=== PATIENT | male | born 1940 | race Caucasian/White ===

== ENCOUNTER 2018-06-08 12:41 | Outpatient (CLI) | payer MEDICARE, OTHER, SELFPAY ==
[2018-06-08 13:58] LABS: Anion Gap 8.8 mmol/L (3-11); BUN 31 mg/dL (7-18); CO2 34.2 mmol/L (21.0-32.0); CREATININE 1.61 mg/dL (0.70-1.30); Calcium 9.6 mg/dL (8.5-10.1); Chloride 99 mmol/L (98-107); Estimated GFR 41.71 (mL/min/1.73m2); Glucose 133 mg/dL (70-100); Potassium 3.6 mmol/L (3.5-5.1); Sodium 142 mmol/L (136-145)
== END 2018-06-08 13:01 ==
PROVIDERS: PCP Family Medicine; Visit Provider Family Medicine
DX: N18.3 Chronic kidney disease, stage 3 (moderate) (principal)
CPT/HCPCS: 36415; 80048

== ENCOUNTER 2018-12-02 15:18 | Outpatient (CLI) | payer MEDICARE, OTHER, SELFPAY ==
[2018-12-02 16:26] LABS: Anion Gap 5.7 mmol/L (3-11); BUN 26 mg/dL (7-18); CO2 34.3 mmol/L (21.0-32.0); Calcium 10.1 mg/dL (8.5-10.1); Chloride 100 mmol/L (98-107); Estimated GFR 53.25 (mL/min/1.73m2); Glucose 104 mg/dL (70-100); Potassium 4.3 mmol/L (3.5-5.1); Sodium 140 mmol/L (136-145)
== END 2018-12-02 15:38 ==
PROVIDERS: PCP Family Medicine; Visit Provider Family Medicine
DX: N18.9 Chronic kidney disease, unspecified (principal); I10 Essential (primary) hypertension
CPT/HCPCS: 36415; 80048

== ENCOUNTER 2020-01-18 15:21 | Emergency (ER) | payer MEDICARE, OTHER, SELFPAY ==
[2020-01-18 15:25] VITALS: BP 185/114; PULSE 98; RESP 20; TEMP 36.9; O2SAT 98
[2020-01-18 15:37] VITALS: RESP 18
--- NOTE | 2020-01-18 15:51 | W.ED.GENAD ---
Discharge Plan Disposition Patient Disposition: HOME Condition: Improving Discharge Details Chief Complaint: GenMedical Clinical Impression: Hypertension Primary Care Provider: Cam Gotti ED Provider: Soham Crum Home Meds and New Rx's Prescriptions: Continued lisinopril 10 mg tablet 10 mg PO DAILY Qty: 90 RF: 3 lisinopril-hydrochlorothiazide 20-25 mg tablet 1 tab PO DAILY Qty: 90 RF: 3 multivitamin 1 EACH tablet 1 ea PO DAILY RF: 0 docusate sodium [Stool Softener] 100 MG capsule 100 mg PO DAILY RF: 0 cholecalciferol (vitamin D3) [Vitamin D3] 1,000 UNIT capsule 1,000 unit PO DAILY Qty: 100 RF: 6 Tums Ultra 1,177 MG tablet,chewable 1,177 mg PO BID RF: 0 aspirin 81 MG tablet,chewable 81 mg PO DAILY Qty: 100 RF: 6 atorvastatin 10 mg tablet 10 mg PO DAILY Qty: 90 RF: 3 Discharge Instructions Instructions: Hypertension (ED) Additional Instructions: Continue normal routine and activities. Please take your blood pressure at the same time, once daily at home and keep a journal. Return if develop chest pain, headache, vomiting, change to vision, shortness of breath, or any other acute concerns. Our care management team will arrange an outpatient follow-up for you in clinic. Medical Decision Making Healthy 79-year-old male with a history of hypertension for which he takes lisinopril and hydrochlorothiazide. He had a routine dental cleaning today and was noted to have blood pressures as high as 185/114. He states had no headache, no chest pain, no shortness of breath, no weakness, no change to urine. Is been feeling well and denies any complaints. After arrival his blood pressure normalized to 154/96. He continued to be asymptomatic. Discussed with him that I do not feel further intervention is required but rather that he check daily blood pressures and I will have care management arrange an outpatient follow-up for him in clinic for recheck. He understands return precautions. HPI General Mode of arrival: ambulatory. Date/Time Provider Initiated Documentation: 01/18/20 15:33. Limitations to Documentation: no limitations. Information obtained by: patient. History of Present Illness 79 year old M presents to the emergency department with the chief complaint of Elevated blood pressure at dentist office, no other complaint., described as mild, Patient started experiencing this unknown and it has been now resolved. No relieving factors improve symptom(s), No exacerbating factors reported . Patient notes denies confusion, chest pain, cough, headaches, loss of appetite, malaise, nausea/vomiting, seizure, shortness of breath, syncope and weakness. Patient did receive the following treatments prior to arrival, none Related Data Home Medications Medication Instructions Recorded Confirmed docusate sodium [Stool Softener] 100 mg PO DAILY tab-cap 11/17/12 01/18/20 multivitamin 1 ea PO DAILY 11/17/12 01/18/20 Tums Ultra 1,177 mg PO BID tab.chew 09/29/15 01/18/20 cholecalciferol (vitamin D3) 1,000 unit PO DAILY #100 tab-cap 09/29/15 01/18/20 [Vitamin D3] aspirin 81 mg PO DAILY #100 tab-cap 06/16/17 01/18/20 lisinopril 10 mg tablet 10 mg PO DAILY #90 tab 04/16/19 01/18/20 lisinopril 20 1 tab PO DAILY #90 tab 04/16/19 01/18/20 mg-hydrochlorothiazide 25 mg tablet atorvastatin 10 mg tablet 10 mg PO DAILY #90 tab 09/27/19 01/18/20 Previous Rx's Medication Instructions Recorded aspirin 81 mg PO DAILY #100 tab-cap 06/16/17 lisinopril 10 mg tablet 10 mg PO DAILY #90 tab 04/16/19 lisinopril 20 1 tab PO DAILY #90 tab 04/16/19 mg-hydrochlorothiazide 25 mg tablet atorvastatin 10 mg tablet 10 mg PO DAILY #90 tab 09/27/19 Allergies Allergy/AdvReac Type Severity Reaction Status Date / Time No Known Allergies Allergy Verified 02/12/19 13:09 General Stated Complaint: GenMedical ISAC: 3 Review of Systems Narrative: Patient denies complaints. 8 systems reviewed and otherwise negative, see HPI. 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 No problems noted. Father , CHF at age 78. Diabetes Heart disease Sister Age: 78 Neoplasm Sister Age: 76 Essential hypertension Brother , mi at age 66. No problems noted. Other Rheumatoid arthritis Social History (Updated 04/16/19 @ 13:12 by Mallory Ayala RN) Smoking/Tobacco Use Status: Current every day Tobacco Type: pipe Alcohol Intake: current Alcohol Intake frequency: holidays/special occasions only Drug use: Never Substance use type: does not use Caregiver/Support person: No Communication Needs: None Current gender identity: male What type of physical activity do you participate in: walking Duration: 30-45 minutes/day Frequency: 3-4 times per week Seatbelt use: always Do you feel safe at home: Yes Additional Social history: lives alone Exam Narrative Exam Narrative: GEN: awake, alert, oriented 3. Pleasant, well groomed, interactive. HEAD: Normocephalic, atraumatic ENT: Mucous membranes moist, oropharynx unremarkable, External ear exam unremarkable EYES: PERRL, EOMI NECK: Full ROM, no DEYANIRA, no menigismus CHEST/RESP: Nontender, clear to auscultation bilateral, no wheeze/rhonchi/rales CARDIOVASCULAR: RRR, no murmur, rub jaspreet. 2+ Rad pulse bilateral ABDOMEN: Soft, nontender, no mass. +Bowel sounds EXT: Full ROM, no edema, no rash Neuro: Grossly normal neurologic exam, conversant, interactive. Psych: Speech fluent, thoughts congruent, affect normal Course Vital Signs Vital signs: Vital Signs Temperature 36.9 C 01/18/20 15:25 Pulse 98 H 01/18/20 15:25 Respiratory Rate 20 01/18/20 15:25 Blood Pressure 185/114 H 01/18/20 15:25 Pulse Oximetry 98 01/18/20 15:25 Temperature 36.9 C 01/18/20 15:25 Temperature Source Skin 01/18/20 15:25 Pulse 98 H 01/18/20 15:25 Respiratory Rate 18 01/18/20 15:37 Respiratory Effort 01/18/20 15:37 Respiratory Depth Normal 01/18/20 15:37 Respiratory Pattern Normal 01/18/20 15:37 Blood Pressure 185/114 H 01/18/20 15:25 Blood Pressure Position Sitting 01/18/20 15:25 Pulse Oximetry 98 01/18/20 15:25 Oxygen Delivery Method Room Air 01/18/20 15:25 Oxygen Flow Rate 0 01/18/20 15:25 Pain Level 0 01/18/20 15:25
--- NOTE | 2020-01-18 16:00 | NUR.NOTE ---
referral faxed to [facility] Dr. Gotti.Nursing Note:
[2020-01-18 16:03] VITALS: BP 154/96; PULSE 78; O2SAT 98
== END 2020-01-18 16:03 | disposition home or self-care (01) ==
LOC: ER 16:03
PROVIDERS: Emergency Provider Emergency Medicine; PCP Family Medicine
DX: I10 Essential (primary) hypertension (principal)
CPT/HCPCS: 99281; 99282

== ENCOUNTER 2020-06-20 01:51 | Outpatient (CLI) | payer MEDICARE, OTHER, SELFPAY ==
[2020-06-20 14:40] LABS: Anion Gap 7.2 mmol/L (3-11); BUN 29 mg/dL (7-18); CO2 34.8 mmol/L (21.0-32.0); CREATININE 1.51 mg/dL (0.70-1.30); Calcium 9.8 mg/dL (8.5-10.1); Chloride 101 mmol/L (98-107); Estimated GFR 44.69 (mL/min/1.73m2); Glucose 107 mg/dL (74-106); Potassium 3.6 mmol/L (3.5-5.1); Sodium 143 mmol/L (136-145)
== END 2020-06-20 02:11 ==
PROVIDERS: PCP Family Medicine; Visit Provider Family Medicine
DX: N18.30 Chronic kidney disease, stage 3 unspecified (principal)
CPT/HCPCS: 36415; 80048

== ENCOUNTER 2021-12-17 04:09 | Outpatient (CLI) | payer MEDICARE, SELFPAY ==
[2021-12-17 16:39] LABS: Anion Gap 10.8 mmol/L (3-11); BUN 30 mg/dL (7-18); CO2 31.2 mmol/L (21.0-32.0); CREATININE 1.6 mg/dL (0.70-1.30); Calcium 10.3 mg/dL (8.5-10.1); Chloride 101 mmol/L (98-107); Estimated GFR 41.59 (mL/min/1.73m2); Glucose 81 mg/dL (74-106); Potassium 3.3 mmol/L (3.5-5.1); Sodium 143 mmol/L (136-145)
== END 2021-12-17 04:10 | disposition home or self-care (01) ==
LOC: LBO 04:10
PROVIDERS: PCP Family Medicine; Visit Provider Family Medicine
DX: N18.30 Chronic kidney disease, stage 3 unspecified (principal)
CPT/HCPCS: 36415; 80048

== ENCOUNTER 2022-07-10 04:59 | Outpatient (CLI) | payer MEDICARE, SELFPAY ==
[2022-07-10 13:20] LABS: Anion Gap 6.2 mmol/L (3-11); BUN 24 mg/dL (7-18); CO2 34.8 mmol/L (21.0-32.0); CREATININE 1.6 mg/dL (0.70-1.30); Calcium 9.6 mg/dL (8.5-10.1); Chloride 100 mmol/L (98-107); Estimated GFR 42.49 (mL/min/1.73m2); Glucose 119 mg/dL (74-106); Potassium 3.2 mmol/L (3.5-5.1); Sodium 141 mmol/L (136-145)
== END 2022-07-10 05:00 | disposition home or self-care (01) ==
LOC: LBO 04:59
PROVIDERS: PCP Family Medicine; Visit Provider Family Medicine
DX: E83.52 Hypercalcemia (principal); I10 Essential (primary) hypertension; N18.30 Chronic kidney disease, stage 3 unspecified
CPT/HCPCS: 36415; 80048

== ENCOUNTER 2023-06-16 05:16 | Outpatient (CLI) | payer MEDICARE, SELFPAY ==
[2023-06-16 13:47] LABS: Anion Gap 7.7 mmol/L (3-11); BUN 30 mg/dL (7-18); CO2 33.3 mmol/L (21.0-32.0); CREATININE 1.9 mg/dL (0.70-1.30); Calcium 9.9 mg/dL (8.5-10.1); Chloride 100 mmol/L (98-107); Estimated GFR 34.57 (mL/min/1.73m2); Glucose 154 mg/dL (74-106); Potassium 3.2 mmol/L (3.5-5.1); Sodium 141 mmol/L (136-145)
== END 2023-06-16 05:17 | disposition home or self-care (01) ==
LOC: LBO 05:17
PROVIDERS: Absent Provider Family Medicine; PCP Family Medicine; Referring Provider Family Medicine; Visit Provider Family Medicine
DX: N18.30 Chronic kidney disease, stage 3 unspecified (principal)
CPT/HCPCS: 36415; 80048

== ENCOUNTER 2023-07-10 13:44 | Outpatient (REF) | payer MEDICARE, SELFPAY ==
[2023-07-10 14:34] LABS: COMMENT (LAB VIEW ONLY) 94.93 mg/dL; Microalb ug/mg Crea 34.4 ug/mg Cr
== END 2023-07-10 13:45 | disposition home or self-care (01) ==
LOC: LBN 13:44
PROVIDERS: PCP Family Medicine; Visit Provider Family Medicine
DX: N18.30 Chronic kidney disease, stage 3 unspecified (principal)
CPT/HCPCS: 82043; 82570

== ENCOUNTER 2023-09-23 04:30 | Outpatient (CLI) | payer MEDICARE, SELFPAY ==
[2023-09-23 13:44] LABS: Anion Gap 8.6 mmol/L (3-11); BUN 23 mg/dL (7-18); CO2 35.4 mmol/L (21.0-32.0); CREATININE 1.7 mg/dL (0.70-1.30); Calcium 9.8 mg/dL (8.5-10.1); Chloride 101 mmol/L (98-107); Estimated GFR 39.26 (mL/min/1.73m2); Glucose 63 mg/dL (74-106); Sodium 145 mmol/L (136-145)
[2023-09-23 13:53] LABS: Potassium 2.9 mmol/L (3.5-5.1)
== END 2023-09-23 04:31 | disposition home or self-care (01) ==
LOC: LBO 04:30
PROVIDERS: PCP Family Medicine; Visit Provider Family Medicine
DX: N18.30 Chronic kidney disease, stage 3 unspecified (principal)
CPT/HCPCS: 36415; 80048

== ENCOUNTER 2023-10-10 02:34 | Outpatient (CLI) | payer MEDICARE, SELFPAY ==
[2023-10-10 15:51] LABS: Anion Gap 11.3 mmol/L (3-11); BUN 23 mg/dL (7-18); CO2 32.7 mmol/L (21.0-32.0); CREATININE 1.5 mg/dL (0.70-1.30); Chloride 101 mmol/L (98-107); Estimated GFR 45.62 (mL/min/1.73m2); Glucose 111 mg/dL (74-106); Potassium 3.5 mmol/L (3.5-5.1); Sodium 145 mmol/L (136-145)
== END 2023-10-10 02:35 | disposition home or self-care (01) ==
LOC: LBO 02:35
PROVIDERS: PCP Family Medicine; Referring Provider Family Medicine; Visit Provider Family Medicine
DX: E87.6 Hypokalemia (principal)
CPT/HCPCS: 36415; 80048

== ENCOUNTER 2024-01-29 02:47 | Outpatient (CLI) | payer MEDICARE, SELFPAY ==
--- OUTSIDE RECORDS SUMMARY | 2024-01-29 02:49 | XMS_ITS | Encounter Summary ---
Author Organization [facility] Address [address] [place] [address] Care Team Providers Care Recycling Operations Manager Name Role Phone Srikanth Childs DDS Primary Care Provider [phone] Encounter Details Date Type Department Care Team (Late st Contact Info) Description 04/27/2020 Results Only [facility] Lab - Main [address] [id number] Srikanth Childs DDS [address] [place] [phone] Social History Tobacco Use Types Packs/Day Years Used Date Smoking Tobacco: Never Assessed Sex and Gender Information Value Date Recorded Sex Assigned at Not on file Gender Identity Not on file Sexual Orientation Not on file documented as of this encounter Plan of Treatment Not on file documented as of this encounter Procedures Procedure Name Priority Date/Time Associated Diagnosis Comments SURGICAL PATHOLOGY Routine 04/27/2020 documented in this encounter Results * SURGICAL PATHOLOGY (04/27/2020) 04/27/2020 04/28/2020 8:4 0 EDT Narrative [facility] - 05/01/2020 14:19 EDT ----- ------- Name: DEXTER MONTOYA ?: [birth year] ?Age/Sex: 79/M ?Unit#: [id number] ? Loc: LAB.OPX ? Status: REG REF ?? Reg Date: 04/27/20 ? Pt.Phone Number: ? ----- ------- Specimen: [id number] ? STATUS: SOUT ?Spec Date:04/27/20 ? Physician Copies: ?Srikanth Childs DDS ?? Tissues: A ?? Oral mucosa, biopsy (LATERAL TONGUE) ? CPT: 33805 ?? Units: ??1 ?FINAL DIAGNOSIS ? TONGUE, LATERAL, BIOPSY; ? - Acanthotic and hyperkeratotic squamous epithelium with verrucoid features, ? negative for dysplasia or invasive carcinoma (see comment) ----- ------- ?COMMENT ? The specimen appears to be tangentially oriented. ? GROSS DESCRIPTION ? Received in formalin and labeled Dexter Dwayne and lateral tongue is a single ? piece of salgado-white tissue measuring 0.3 x 0.3 x 0.2 cm. es 1 KF ?? PREOP DX/CLINICAL HISTORY ?PAPILLOMA Signed ____(signature on file)____ MitulgeovanniJasonEvan 05/01/20 ?? By the signature above, the attending physician certifies that he/she has personally conducted a gross and/or microscopic examination of the described specimens and rendered or confirmed the above diagnosis. Test Performed by [facility], [address] [place], [place] [id number] Coding Assistant: Gloria Delgado MD PHD ----- ------- Srikanth Childs DDS PATHOLOGY ORDERABLES [facility] [address] [place] [id number] documented in this encounter Visit Diagnoses Not on filedocumented in this encounter Care Teams Recycling Operations Manager Relationship Specialty Start Date End Date Srikanth Childs DDS PCP - General asbestos brake lining finisher 04/27/20 documented as of this encounter
--- OUTSIDE RECORDS SUMMARY | 2024-01-29 02:49 | XMS_ITS | Encounter Summary ---
Author Organization [facility] Address [address] [place] [address] Care Team Providers Care Electronics Repair Technician Name Role Phone Unavailable Primary Care Provider Unavailabl e Encounter Details Date Type Department Care Team ([facility] st Contact Info) Description 06/20/2004 Results Only [facility] - Maple conversion [address] [place] [address] Karlie Thurman MD [address] [place] [phone] Social History Tobacco Use Types Packs/Day Years Used Date Smoking Tobacco: Never Assessed Sex and Gender Information Value Date Recorded Sex Assigned at Not on file Gender Identity Not on file Sexual Orientation Not on file documented as of this encounter Plan of Treatment Not on file documented as of this encounter Procedures Procedure Name Priority Date/Time Associated Diagnosis Comments SURGICAL PATHOLOGY Routine 06/20/2004 0:00 EST documented in this encounter Results * SURGICAL PATHOLOGY (06/20/2004 0:00 EST) Pathology Report: SURGICAL PATHOLOGY REPORT Reports generated via electronic interface contain original data; however they are lacking the format of the original report. Caution should be taken when reading/interpreti ng unformatted reports. Name: ? DEXTER MONTOYA ? Accession #: ? [id number] ? : ? 1940 (Age: 63) ??M ? Collect Date: ? 06/20/2004 ? Location: ? [facility] ? Receive Date: ? 06/20/2004 ? Provider: KARLIE THURMAN MD Copy to: CHAN BRANNON MD ? Final Pathologic Diagnosis: ? Prostate, prostatectomy: 1. ?Benign nodular hyperplasia. 2. ?Chronic prostatitis. Document reviewed and electronically signed by: Sravan Reid MD Report ??Date: 06/22/2004 15:44 By the signature above, the attending physician certifies that he/she has personally conducted a gross and/or microscopic examination of the described specimens and rendered or confirmed the above diagnosis. Specimen(s) Received: ? Prostate Clinical History: ? Open prostatectomy; PMH urinary retention, bladder obstruction, negative bx Gross Description: ? Received in formalin labelled Dwayne and prostate is the product of a radical prostatectomy which weighs 108 grams. ??The prostate measures 7.0 cm right to left, 6.5 cm apex to base, and 4.5 cm anterior to posterior. ??The vas deferens and seminal vesicles are not received with the prostate. ??The posterior surgical margin is inked blue and the remaining surgical margins are inked black. ??Red ink is placed on the right and left bladder prostate for orientation purposes only. ??The prostate is serially sectioned from apex to base, revealing a soft, salgado-yellow surface with focal nodularity and hemorrhage. ??The prostate exudes a salgado, creamy fluid while it is sectioned. ??Sections are submitted as follows: BLOCK MAGUIRE A1-A5 ?Right and left apex, perpendicular sections A6 ?Inferior right anterolateral A7 ?Inferior right posterolateral A8 ?Inferior left, posterolateral A9 ?Inferior left anterolateral A10 ?Mid right, anterolateral A11 ?Mid right, posterolateral A12 ?Mid left, posterolateral A13 ?Mid left, anterolateral A14 ?Superior right, anterolateral A15 ?Superior right, posterolateral A16 ?Superior left, posterolateral A17 ?Superior left, anterolateral A18-A20 ? Right base, perpendicular sections A21-A23 ? Left base, perpendicular sections (Dr. Baker)/kmm ? End of Report [facility] 06/20/2004 06/20/2004 15: 27 EST Karlie Thurman MD PATHOLOGY ORDERABLES [facility] [address] [place] [address] documented in this encounter Visit Diagnoses Not on filedocumented in this encounter
--- OUTSIDE RECORDS SUMMARY | 2024-01-29 02:49 | XMS_ITS | Encounter Summary ---
Author Organization [facility] Address [address] [place] [address] Care Team Providers Care Editor Publications Name Role Phone Unavailable Primary Care Provider Unavailabl e Encounter Details Date Type Department Care Team ([facility] st Contact Info) Description 05/02/2004 Results Only [facility] - Maple conversion [address] [place] [address] Karlie Thurman MD [address] [place] [phone] Social History Tobacco Use Types Packs/Day [...] Date/Time Associated Diagnosis Comments SURGICAL PATHOLOGY Routine 05/02/2004 0:00 EDT documented in this encounter Results * SURGICAL PATHOLOGY (05/02/2004 0:00 EDT) Pathology Report: SURGICAL PATHOLOGY REPORT Reports generated via electronic interface contain original data; however they are lacking the format of the original report. Caution should be taken when reading/interpreti ng unformatted reports. Name: ? DEXTER MONTOYA ? Accession #: ? [id number] ? : ? 1940 (Age: 63) ??M ? Collect Date: ? 05/02/2004 ? Location: ? [facility] ? Receive Date: ? 05/02/2004 ? Provider: KARLIE THURMAN MD Copy to: CHAN BRANNON MD ? Final Pathologic Diagnosis: A. ?Prostate, right apex, needle core biopsy: 1. ?Prostatic tissue (1 core): ? - ??Acute and chronic inflammation. - ??Atrophy. B. ?Prostate, right mid, needle core biopsy: 1. ?Prostatic tissue (1 core): ? - ??Acute and chronic inflammation. - ??Atrophy. - ??Benign urothelium. C. ?Prostate, right base, needle core biopsy: 1. ?Prostatic tissue (1 core): ? - ??Atrophy with mild chronic inflammation. 2. ?Benign colorectal mucosa with no specific pathologic features. D. ?Prostate, left apex, needle core biopsy: 1. ?Prostatic tissue (1 core): ? - ??Atrophy with focal acute inflammation. E. ?Prostate, left mid, needle core biopsy: 1. ?Prostatic tissue (1 core): ? - ??Focal mild acute and chronic inflammation. - ??Focal giant cell reaction. - ??Atrophy. F. ?Prostate, left base, needle core biopsy: 1. ?Prostatic tissue (2 cores): ? - ??Mild acute and chronic inflammation. - ??Atrophy. Document reviewed and electronically signed by: Jaziel Read MD Report ??Date: 05/04/2004 16:58 By the signature above, the attending physician certifies that he/she has personally conducted a gross and/or microscopic examination of the described specimens and rendered or confirmed the above diagnosis. Specimen(s) Received: A. ?Rt apex B. ?Rt mid C. ?Rt base D. ?Lt apex ? E. ?Lt mid F. ?Lt base x2 Clinical History: ? TRUS prostate, PSA 4.1, hypoechoic lesion L base, R/O CAP Gross Description: ? Received in formalin labelled Dwayne and right apex is a salgado-white cylindrical 1.3 x 0.1 cm soft tissue. ??The specimen is entirely submitted as (A). ?? Received in formalin labelled Dwayne and right mid is a salgado-white cylindrical 1.6 x 0.1 cm soft tissue. ??The specimen is entirely submitted as (B). ?? Received in formalin labelled Dwayne and right base is a salgado-white cylindrical 1.7 x 0.1 cm soft tissue. ??The specimen is entirely submitted as (C). Received in formalin labelled Dwayne and left apex is a salgado-white cylindrical 1.8 x 0.1 cm soft tissue. ??The specimen is entirely submitted as (D). ?? Received in formalin labelled Dwayne and left mid is a salgado-white cylindrical 1.8 x 0.1 cm soft tissue. The specimen is entirely submitted as (E). Received in formalin labelled Dwayne and left base are two salgado-white cylindrical soft tissues averaging 1.6 cm in length and 0.1 cm in diameter. ??The specimen is entirely submitted as (F). ??(Madhu Johnson)/[facility] End of Report [facility] 05/02/2004 05/02/2004 15: 29 EDT Karlie Thurman MD PATHOLOGY ORDERABLES [facility] [address] [place] [address] documented in this encounter Visit Diagnoses Not on filedocumented in this encounter
--- OUTSIDE RECORDS SUMMARY | 2024-01-29 02:49 | XMS_ITS | Referral Summary ---
Author Organization Health system Address [address] [place] [address] Care Team Providers Care Linen Room Houseperson Name Role Phone Srikanth Childs DDS Primary Care Provider Social History Tobacco Use Types Packs/Day Years Used Date Smoking Tobacco: Never Assessed Sex and Gender Information Value Date Recorded Sex Assigned at Not on file Gender Identity Not on file Sexual Orientation Not on file Plan of Treatment Not on file Care Teams Linen Room Houseperson Relationship Specialty Start Date End Date Srikanth Childs DDS PCP - General manager ent 04/27/20
--- OUTSIDE RECORDS SUMMARY | 2024-01-29 02:49 | XMS_ITS | Clinical Summary ---
Author Organization [facility] Address [address] [place] [address] Care Team Providers Care Yeast Distiller Name Role Phone Srikanth Childs DDS Primary Care Provider [phone] Social History Tobacco Use Types Packs/Day Years Used Date Smoking Tobacco: Never Assessed Sex and Gender Information Value Date Recorded Sex Assigned at Not on file Gender Identity Not on file Sexual Orientation Not on file Plan of Treatment Health Maintenance Due Date Last Done Comments RSV Immunization ( o r 60+ Years) (1 - 1-dose 60+ series) 1999 Fall Risk Screening 2004 COVID-19 Vaccine (2022-24 season) 2023 Care Teams Yeast Distiller Relationship Specialty Start Date End Date Srikanth Childs DDS PCP - General music artist 04/27/20
--- OUTSIDE RECORDS SUMMARY | 2024-01-29 02:49 | XMS_ITS | Encounter Summary ---
Author Organization [facility] Address [address] [place] [address] Care Team Providers Care Rn Oncology Research Name Role Phone Unavailable Primary Care Provider Unavailabl e Encounter Details Date Type Department Care Team (Late st Contact Info) Description 12/24/2006 Results Only [facility] - Map conversion [address] [place] [address] Amish Bell MD [address] [place] [phone] Social History Tobacco Use Types Packs/Day Years Used Date Smoking Tobacco: Never Assessed Sex and Gender Information Value Date Recorded Sex Assigned at Not on file Gender Identity Not on file Sexual Orientation Not on file documented as of this encounter Plan of Treatment Not on file documented as of this encounter Procedures Procedure Name Priority Date/Time Associated Diagnosis Comments SURGICAL PATHOLOGY Routine 12/24/2006 0:00 EDT documented in this encounter Results * SURGICAL PATHOLOGY (12/24/2006 0:00 EDT) Pathology Report: SURGICAL PATHOLOGY REPORT Reports generated via electronic interface contain original data; however they are lacking the format of the original report. Caution should be taken when reading/interpreti ng unformatted reports. Name: ? DEXTER MONTOYA ? Accession #: ? [id number] ? : ? 1940 (Age: 66) ??M ? Collect Date: ? 12/24/2006 ? Location: ? [facility] ? Receive Date: ? 12/24/2006 ? Provider: JOSE CAR[facility]OS BELL MD Copy to: CHAN BRANNON MD ? Final Pathologic Diagnosis: ? Colon, hepatic flexure, polypectomy: - Hyperplastic polyp. Document reviewed and electronically signed by: ONEYDA FLOWERS MD Report ??Date: 12/26/2006 15:01 By the signature above, the attending physician certifies that he/she has personally conducted a gross and/or microscopic examination of the described specimens and rendered or confirmed the above diagnosis. Specimen(s) Received: ? Polyp hepatic flexure Clinical History: ? Screening Gross Description: ? Received in Hollande's fixative labelled Dwayne and polyp hepatic flexure are two irregular soft tissue fragments each measuring 0.2 x 0.2 x 0.2 cm. Submitted entirely in one cassette. (Dr. Garcia)/mpl End of Report [facility] 12/24/2006 12/24/2006 15: 15 EDT Amish Bell MD PATHOLOGY ORDERABLES Performing Organization Address City/State/[facility] Co de Phone Number [facility] [address] [place] [address] documented in this encounter Visit Diagnoses Not on filedocumented in this encounter
[2024-01-29 14:08] LABS: Anion Gap 6.6 mmol/L (3-11); BUN 21 mg/dL (7-18); CO2 32.4 mmol/L (21.0-32.0); CREATININE 1.6 mg/dL (0.70-1.30); Calcium 9.8 mg/dL (8.5-10.1); Chloride 103 mmol/L (98-107); Estimated GFR 42.22 (mL/min/1.73m2); Glucose 109 mg/dL (74-106); Potassium 3.6 mmol/L (3.5-5.1); Sodium 142 mmol/L (136-145)
== END 2024-01-29 02:48 | disposition home or self-care (01) ==
LOC: LBO 02:47
PROVIDERS: PCP Family Medicine; Referring Provider Family Medicine; Visit Provider Family Medicine
DX: I10 Essential (primary) hypertension (principal)
CPT/HCPCS: 36415; 80048

== ENCOUNTER 2025-02-24 14:39 | Outpatient (REF) | payer MEDICARE, SELFPAY ==
[2025-02-24 16:51] LABS: Anion Gap 6.3 mmol/L (3-11); BUN 24 mg/dL (7-18); CO2 34.7 mmol/L (21.0-32.0); Calcium 10.2 mg/dL (8.5-10.1); Chloride 103 mmol/L (98-107); Estimated GFR 41.96 (mL/min/1.73m2); Glucose 160 mg/dL (74-106); Potassium 3.3 mmol/L (3.5-5.1); Sodium 144 mmol/L (136-145)
== END 2025-02-24 14:40 | disposition home or self-care (01) ==
LOC: LBN 14:39
PROVIDERS: PCP Family Medicine; Visit Provider Family Medicine
DX: N18.30 Chronic kidney disease, stage 3 unspecified (principal)
CPT/HCPCS: 80048